=== PATIENT | female | born 1950 | race Caucasian/White ===

== ENCOUNTER 2024-05-24 19:16 | Inpatient (IN) | payer OTHER ==
[~2024-05-24] VITALS: Ht 167.6 cm; Wt 60.3 kg
[2024-05-24 19:20] VITALS: PULSE 82; RESP 18
[2024-05-24 23:00] VITALS: BP 155/76; PULSE 94; RESP 21; TEMP 98.3; O2SAT 99
[2024-05-24] MEDS: SODIUM CHLORIDE 0.9% 1000ML 1,000 ML IV SCH (23:50)
[2024-05-25] VITALS (8 sets, daily range): BP systolic 121–155; BP diastolic 54–79; PULSE 71–94; RESP 18–21; TEMP 97.4–98.6; O2SAT 95–100
[2024-05-25] MEDS: FUROSEMIDE INJ 10 MG/ML 4 ML VIAL IV ONE
[2024-05-25] MEDS: ONDANSETRON HCL INJ 2MG/ML 2ML 2 MG/ML VIAL IV PRN (00:12)
[2024-05-25] MEDS: Morphine 4mg INJECTION 4 MG/ML INJ IV PRN (00:13)
[2024-05-25] MEDS: CALCIUM GLUC 1 G/50 ML NACL 50 ML IV ONE (01:02)
[2024-05-25] MEDS: SODIUM BICARBONATE 8.4% INJ 50 ML SYR IV ONE (01:47)
[2024-05-25] MEDS: DEXTROSE 50% SYRINGE 50 ML IV ONE (02:35)
[2024-05-25 03:36] LABS: ALBUMIN 3.4 g/dL (3.5-5.0); ALBUMIN/GLOBULIN RATIO 1.1 (0.8-2.0); ANION GAP 14.8 mmol/L (8-16); BILIRUBIN,TOTAL 0.3 mg/dL (0.2-1.2); CALCIUM 8.6 mg/dL (8.4-10.2); CREATININE, SERUM 3.34 mg/dL (0.57-1.11); POTASSIUM 4.8 mmol/L (3.5-5.1); TOTAL PROTEIN 6.4 g/dL (6.5-8.1)
[2024-05-25 03:42] LABS: TROPONIN I 0.029 ng/mL (0-0.300)
[2024-05-25] MEDS: INSULIN REGULAR, HUMAN 100 UNIT/1 ML IV ONE (03:45)
[2024-05-25] MEDS ORDERED: HYDROXYZINE HCL25 MG PO (04:33)
[2024-05-25] MEDS ORDERED: AMLOD/BENAZP PO (04:33)
[2024-05-25] MEDS ORDERED: ALENDRONATE SOD70 MG PO (04:33)
[2024-05-25 06:31] LABS: BASOPHILS % 0.7 % (0.0-1.0); EOSINOPHILS # (AUTO) 0.1 (0.0-0.4); EOSINOPHILS % 1.6 % (0.0-6.0); HEMATOCRIT 23.9 % (34.2-44.1); HEMOGLOBIN 7.4 g/dL (12.0-16.0); LYMPHOCYTES # (AUTO) 0.7 (1.0-3.2); LYMPHOCYTES % 12.5 % (18.0-39.1); MEAN CORPUSCULAR HEMOGLOBIN 29.4 pg (28-32); MEAN CORPUSCULAR VOLUME 94.8 fL (81-99); MONOCYTES # (AUTO) 0.6 (0.2-0.8); MONOCYTES % 10.8 % (4.4-11.3); NEUTROPHILS # (AUTO) 4.3 (2.1-6.9); NEUTROPHILS % 74.1 % (38.7-80.0); PLATELET COUNT 251 x10e3/uL (140-360); RED BLOOD COUNT 2.52 x10e6/uL (3.6-5.1); RED CELL DISTRIBUTION WIDTH 14.1 % (11.7-14.4); WHITE BLOOD COUNT 5.75 x10e3/uL (4.8-10.8)
[2024-05-25 07:31] LABS: ALBUMIN 3.5 g/dL (3.5-5.0); ALBUMIN/GLOBULIN RATIO 1.3 (0.8-2.0); ANION GAP 14.8 mmol/L (8-16); BILIRUBIN,TOTAL 0.5 mg/dL (0.2-1.2); CALCIUM 8.7 mg/dL (8.4-10.2); CREATININE, SERUM 3.27 mg/dL (0.57-1.11); POTASSIUM 4.8 mmol/L (3.5-5.1); TOTAL PROTEIN 6.3 g/dL (6.5-8.1)
[2024-05-25 07:40] LABS: TROPONIN I 0.028 ng/mL (0-0.300)
[2024-05-25] MEDS ORDERED: HYDRALAZINE HCL 20 MG/ML VIAL IV PRN (11:00)
[2024-05-25 11:58] LABS: % IRON SATURATION 24 % (15-50); IRON 63 ug/dL (50-170); TOTAL IRON BINDING CAPACITY 263 ug/dL (261-478); TRANSFERRIN 188 mg/dL (180-382)
[2024-05-25] MEDS: IRON SUCROSE 100 MG in SODIUM CHLORIDE 0.9% 100 ML IV SCH (12:09)
[2024-05-25] MEDS: EPOETIN ALFA-EPBX 10,000 UNIT/ML VIAL SC ONE (12:09)
[2024-05-25 12:49] LABS: FOLATE 16.1 ng/mL (7.0-15.4)
[2024-05-25] MEDS: ACETAMINOPHEN 325 MG TAB PO PRN (15:15)
[2024-05-25] MEDS: SODIUM BICARBONATE 650 MG TAB PO SCH (16:59)
[2024-05-26] VITALS (7 sets, daily range): BP systolic 97–120; BP diastolic 45–65; PULSE 62–86; RESP 17–19; TEMP 98–98.6; O2SAT 97–100
[2024-05-26] MEDS ORDERED: HYDROXYZINE HCL 25 MG TAB PO SCH (09:00)
[2024-05-26 10:38] LABS: ANION GAP 13.6 mmol/L (8-16); CALCIUM 8.1 mg/dL (8.4-10.2); CREATININE, SERUM 3.09 mg/dL (0.57-1.11); PHOSPHORUS 4.4 MG/DL (2.3-4.7)
[2024-05-26 10:48] LABS: POTASSIUM 5.6 mmol/L (3.5-5.1)
[2024-05-26] MEDS: SOD POLYSTYRENE SULFONATE SUSP 15 GM/60 ML BTL PO ONE (11:18)
[2024-05-26 16:56] LABS: BASOPHILS # (AUTO) 0.1 (0.0-0.1); BASOPHILS % 1.1 % (0.0-1.0); EOSINOPHILS # (AUTO) 0.2 (0.0-0.4); EOSINOPHILS % 5.4 % (0.0-6.0); HEMOGLOBIN 7.4 g/dL (12.0-16.0); LYMPHOCYTES % 23.5 % (18.0-39.1); MEAN CORPUSCULAR HEMOGLOBIN 29.5 pg (28-32); MEAN CORPUSCULAR HGB CONC 29.6 g/dL (31-35); MEAN CORPUSCULAR VOLUME 99.6 fL (81-99); MONOCYTES # (AUTO) 0.4 (0.2-0.8); NEUTROPHILS # (AUTO) 2.7 (2.1-6.9); NEUTROPHILS % 60.8 % (38.7-80.0); PLATELET COUNT 257 x10e3/uL (140-360); RED BLOOD COUNT 2.51 x10e6/uL (3.6-5.1); RED CELL DISTRIBUTION WIDTH 14.2 % (11.7-14.4); WHITE BLOOD COUNT 4.42 x10e3/uL (4.8-10.8)
[2024-05-26] MEDS: HYDROXYZINE HCL 25 MG TAB PO SCH (20:51)
[2024-05-27] VITALS (9 sets, daily range): BP systolic 92–139; BP diastolic 50–67; PULSE 65–85; RESP 16–21; TEMP 97.6–99.4; O2SAT 95–100
[2024-05-27 05:35] LABS: BASOPHILS # (AUTO) 0.1 (0.0-0.1); EOSINOPHILS # (AUTO) 0.3 (0.0-0.4); EOSINOPHILS % 5.5 % (0.0-6.0); HEMATOCRIT 25.1 % (34.2-44.1); HEMOGLOBIN 7.4 g/dL (12.0-16.0); LYMPHOCYTES # (AUTO) 1.4 (1.0-3.2); LYMPHOCYTES % 29.3 % (18.0-39.1); MEAN CORPUSCULAR HEMOGLOBIN 29.7 pg (28-32); MEAN CORPUSCULAR HGB CONC 29.5 g/dL (31-35); MEAN CORPUSCULAR VOLUME 100.8 fL (81-99); MONOCYTES # (AUTO) 0.6 (0.2-0.8); MONOCYTES % 11.2 % (4.4-11.3); NEUTROPHILS # (AUTO) 2.6 (2.1-6.9); NEUTROPHILS % 52.2 % (38.7-80.0); PLATELET COUNT 224 x10e3/uL (140-360); RED BLOOD COUNT 2.49 x10e6/uL (3.6-5.1); RED CELL DISTRIBUTION WIDTH 13.9 % (11.7-14.4); WHITE BLOOD COUNT 4.91 x10e3/uL (4.8-10.8)
[2024-05-27 06:26] LABS: ALBUMIN/GLOBULIN RATIO 1.1 (0.8-2.0); ANION GAP 16.4 mmol/L (8-16); BILIRUBIN,TOTAL 0.2 mg/dL (0.2-1.2); CALCIUM 7.6 mg/dL (8.4-10.2); CREATININE, SERUM 3.03 mg/dL (0.57-1.11); POTASSIUM 4.4 mmol/L (3.5-5.1); TOTAL PROTEIN 5.7 g/dL (6.5-8.1)
[2024-05-27] MEDS ORDERED: SODIUM BICARBONATE 650 MG TAB PO SCH (09:30)
[2024-05-27] MEDS ORDERED: IRON SUCROSE 100 MG in SODIUM CHLORIDE 0.9% 100 ML IV SCH (09:45)
[2024-05-27] MEDS: SODIUM CHLORIDE 0.9% 250ML 250 ML IV ONE ×2 (10:23)
[2024-05-27] MEDS: EPOETIN ALFA-EPBX 10,000 UNIT/ML VIAL SC ONE (10:28)
[2024-05-27] MEDS: SODIUM BICARBONATE 650 MG TAB PO SCH (15:20)
[2024-05-28] VITALS: BP 126/70; PULSE 73; RESP 18; TEMP 98; O2SAT 97
[2024-05-28 01:42] VITALS: BP 126/70; PULSE 73; RESP 18; TEMP 98; O2SAT 97
[2024-05-28 03:08] LABS: CALCIUM 7.8 mg/dL (8.7-10.3)
[2024-05-28 05:40] VITALS: BP 102/59; PULSE 67; RESP 17; TEMP 98.1; O2SAT 97
[2024-05-28 06:49] LABS: BASOPHILS % 0.9 % (0.0-1.0); EOSINOPHILS # (AUTO) 0.2 (0.0-0.4); EOSINOPHILS % 4.9 % (0.0-6.0); HEMATOCRIT 25.5 % (34.2-44.1); HEMOGLOBIN 8.2 g/dL (12.0-16.0); LYMPHOCYTES # (AUTO) 1.4 (1.0-3.2); MEAN CORPUSCULAR HEMOGLOBIN 30.1 pg (28-32); MEAN CORPUSCULAR HGB CONC 32.2 g/dL (31-35); MEAN CORPUSCULAR VOLUME 93.8 fL (81-99); MONOCYTES # (AUTO) 0.7 (0.2-0.8); MONOCYTES % 15.5 % (4.4-11.3); NEUTROPHILS % 46.2 % (38.7-80.0); PLATELET COUNT 211 x10e3/uL (140-360); RED BLOOD COUNT 2.72 x10e6/uL (3.6-5.1); RED CELL DISTRIBUTION WIDTH 14.3 % (11.7-14.4); WHITE BLOOD COUNT 4.25 x10e3/uL (4.8-10.8)
[2024-05-28 07:15] LABS: ANION GAP 13.8 mmol/L (8-16); CALCIUM 7.4 mg/dL (8.4-10.2); CREATININE, SERUM 2.82 mg/dL (0.57-1.11); POTASSIUM 3.8 mmol/L (3.5-5.1)
[2024-05-28 08:23] VITALS: BP 106/53; PULSE 67; RESP 17; TEMP 97.7; O2SAT 99
[2024-05-28] MEDS: IRON SUCROSE 100 MG in SODIUM CHLORIDE 0.9% 100 ML IV SCH (11:15)
[2024-05-28 12:00] VITALS: BP 114/68; PULSE 75; RESP 18; TEMP 98.6; O2SAT 98
== END 2024-05-28 12:55 | disposition home or self-care (01) | DRG 812 ==
LOC: FSED 19:37 → ERHOLD 20:41 → MED/SURG3 22:44
PROVIDERS: ADMIT Internal Medicine; ATTEND Internal Medicine
PROC: 30233N1 Transfusion of Nonautologous Red Blood Cells into Peripheral Vein, Percutaneous Approach (ICD-10-PCS; principal; 2024-05-27)
DX: D50.9 Iron deficiency anemia, unspecified (principal); N25.81 Secondary hyperparathyroidism of renal origin; N17.9 Acute kidney failure, unspecified; N18.4 Chronic kidney disease, stage 4 (severe); E87.20 Acidosis, unspecified; E87.5 Hyperkalemia; I12.9 Hypertensive chronic kidney disease with stage 1 through stage 4 chronic kidney disease, or unspecified chronic kidney disease; D63.1 Anemia in chronic kidney disease; M81.0 Age-related osteoporosis without current pathological fracture; Z11.52 Encounter for screening for COVID-19; Q63.1 Lobulated, fused and horseshoe kidney
CPT/HCPCS: 0223U; 36415; 71045; 74150; 76770; 80048; 80053; 82270; 82550; 82607; 82728; 82746; 82948; 83540; 83690; 83880; 83970; 84100; 84466; 84484; 85025; 86850; 86900; 86920; 87400; 93005; 99284; J0612; J1756; J1940; J2270; J2405; J3410; J7030; J7050; J7799; P9016

== ENCOUNTER 2025-03-26 17:47 | Emergency (ER) | payer OTHER, MEDICARE ==
[~2025-03-26] VITALS: Ht 172.7 cm; Wt 65.3 kg
[~2025-03-26 17:47] MED LIST: ALENDRONATE SOD70 MG PO; AMLOD/BENAZP PO; HYDROXYZINE HCL25 MG PO; IBU600 MG PO; TYLENOL325 MG PO; ULTRAM 50MG50 MG PO
[2025-03-26] MEDS ORDERED: ADDERALL 20 MG20 MG (18:25)
[2025-03-26] MEDS ORDERED: TEMAZEPAM15 MG PO (18:25)
[2025-03-26] MEDS ORDERED: CALCITROL (18:25)
[2025-03-26] MEDS ORDERED: AMLODIPINE BESY10 MG PO (18:25)
[2025-03-26] MEDS ORDERED: SODIUM BICARBO650 MG PO (18:25)
[2025-03-26] MEDS: ACETAMINOPHEN 325 MG TAB PO ONE (19:00)
[2025-03-26] MEDS: CYCLOBENZAPRINE HCL 10 MG TAB PO ONE (19:01)
[2025-03-26] MEDS ORDERED: CYCLOBENZAPRINE10 MG PO (19:10)
[2025-03-26 19:17] VITALS: BP 161/83; PULSE 69; RESP 17; TEMP 98.7
[2025-03-26 19:25] VITALS: PULSE 69; RESP 17; TEMP 98.7; O2SAT 98
== END 2025-03-26 19:44 | disposition home or self-care (01) ==
LOC: FSED 18:23
DX: S16.1XXA Strain of muscle, fascia and tendon at neck level, initial encounter (principal); R51.9 Headache, unspecified; V43.53XA Car driver injured in collision with pick-up truck in traffic accident, initial encounter; Y92.488 Other paved roadways as the place of occurrence of the external cause; I12.9 Hypertensive chronic kidney disease with stage 1 through stage 4 chronic kidney disease, or unspecified chronic kidney disease; N18.9 Chronic kidney disease, unspecified; F90.9 Attention-deficit hyperactivity disorder, unspecified type
CPT/HCPCS: 99283